=== PATIENT | male | born 2000 | race Caucasian/White ===

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

== ENCOUNTER 2018-01-20 19:53 | Emergency (ER) | payer BC ==
[2018-01-20 20:48] VITALS: BP 113/68
--- NOTE | 2018-01-20 20:53 | UC ---
Hand/Wrist HPI - HPI Summary HPI Summary: Pt presents with left wrist pain. He tells me that 2 days ago he fell on the ice and sustained a FOOSH type injury. His pain is minimal at this time, but he is concerned because he broke his right wrist in the past and had hardly any pain. He has not taken anything for his pain. Denies numbness, tingling, or decreased sensation. - History Of Current Complaint Chief Complaint: UCUpperExtremity Stated Complaint: WRIST INJURY Time Seen by Provider: 01/20/18 20:49 Hx Obtained From: Patient Mechanism Of Injury: FOOSH Onset/Duration: Sudden Onset Severity Initially: Mild Severity Currently: Mild Pain Intensity: 2 Pain Scale Used: 0-10 Numeric Character Of Pain: Dull, Stiffness Aggravating Factor(s): Movement, Lifting Alleviating Factor(s): Rest - Allergies/Home Medications Allergies/Adverse Reactions: Allergies Allergy/AdvReac Type Severity Reaction Status Date / Time amoxicillin Allergy Intermediate Rash Verified 01/20/18 20:48 Home Medications: Home Medications NK [No Home Medications Reported] 01/20/18 [History Confirmed 01/20/18] PMH/Surg Hx/FS Hx/Imm Hx Previously Healthy: Yes - Surgical History Surgical History: None - Family History Known Family History: Positive: None - Social History Occupation: Employed Full-time Lives: With Family Alcohol Use: Weekly Substance Use Type: Marijuana Substance Use Comment - Amount & Last Used: weekly, on weekends Smoking Status (MU): Never Smoked Tobacco - Immunization History Vaccination Up to Date: Yes Review of Systems Constitutional: Negative Skin: Negative Respiratory: Negative Cardiovascular: Negative Neurovascular: Negative Musculoskeletal: Other: - Pain left wrist Neurological: Negative Psychological: Negative All Other Systems Reviewed And Are Negative: Yes Physical Exam Triage Information Reviewed: Yes Appearance: Well-Appearing, No Pain Distress, Well-Nourished Vital Signs: Initial Vital Signs Temp 98.3 F 01/20/18 20:43 Pulse 55 01/20/18 20:43 Resp 16 01/20/18 20:43 BP 113/68 01/20/18 20:43 Pulse Ox 100 01/20/18 20:43 Vital Signs Reviewed: Yes Neck: Positive: Supple, Nontender, No Lymphadenopathy Respiratory: Positive: Lungs clear, Normal breath sounds, No respiratory distress Cardiovascular: Positive: RRR, No Murmur, Pulses Normal - Left radial and ulnar Musculoskeletal: Positive: Strength Intact - Left wrist and hand, ROM Intact - Left wrist and hand, No Edema - Left wrist and hand, Other: - Left dorsal wrist mild pain with hyperflexion. NTTP at rest. No snuffbox tenderness, obvious bony deformities, ecchymosis, or abrasions. Neurological: Positive: Alert, Other: - Sensations intact left hand and all fingers Psychological: Positive: Age Appropriate Behavior Skin: Negative: breakdown, significant lesion(s) Hand/Wrist Course/Dx - Course Course Of Treatment: Wrist XR: IMPRESSION: NO ACUTE FRACTURE. Suspect left wrist sprain. His wrist was wrapped in an TAVARES wrap and advised RICE therapy with ibuprofen prn - Differential Dx/Diagnosis Provider Diagnoses: Left wrist sprain Discharge - Discharge Plan Condition: Stable Disposition: HOME Patient Education Materials: Wrist Sprain (ED) Referrals: Deniz Kelley MD [Primary Care Provider] - Additional Instructions: If you develop a fever, shortness of breath, chest pain, new or worsening symptoms - please call your PCP or go to the ED. 1) Rest, Ice, and and elevate your wrist as much as possible over the next 24- 48 hours 2) May wear the wrist TAVARES wrap as needed for comfort/stability 3) May take ibuprofen 600mg every 6-8 hours as needed for pain
--- NOTE | 2018-01-20 21:11 | RAD ---
INDICATION: Pain. Fall. COMPARISON: None TECHNIQUE: AP, lateral, and oblique views were obtained. FINDINGS: The bony structures, joint spaces, and soft tissues are normal for age. IMPRESSION: NO ACUTE FRACTURE.
== END 2018-01-20 21:25 | disposition home or self-care (01) ==
LOC: UCEAST 19:53
DX: S63.502A Unspecified sprain of left wrist, initial encounter (principal); W00.0XXA Fall on same level due to ice and snow, initial encounter; Y93.9 Activity, unspecified; Y92.9 Unspecified place or not applicable
CPT/HCPCS: 99212; G0463

== ENCOUNTER 2018-04-06 12:35 | Emergency (ER) | payer BC ==
[2018-04-06 14:35] VITALS: BP 103/59
--- NOTE | 2018-04-06 14:41 | UC ---
Respiratory Complaint HPI - HPI Summary HPI Summary: 17 y/o male adolescent present to the urgent care c/o productive cough w/ green sputum, nasal congestion and green nasal discharge for the past week. Pt reports symptoms started w/ mild sore throat and fever for 2 days which have resolved. However he fell cough is worsening and he has been unable to sleep for the past 2 days. He feels there is liquid in his lungs now. He has taking Vitamin C and Emergency OTC. 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 Pt denies SOB, chest pain, abdominal pain, N/V/D. Pt is UTD w/ all vaccines for his age. - History of Current Complaint Chief Complaint: UCRespiratory Stated Complaint: COUGH,CONGESTED Time Seen by Provider: 04/06/18 14:39 Hx Obtained From: Patient Onset/Duration: Gradual Onset, Lasting Weeks - 1 week, Still Present, Worse Since - 2 days Timing: Intermittent Episodes Severity Initially: Mild Severity Currently: Moderate Pain Intensity: 2 - sore throat Pain Scale Used: 0-10 Numeric Character: Cough: Productive, Sputum Description: - green Aggravating Factors: Recumbent Position Alleviating Factors: OTC Meds Associated Signs And Symptoms: Positive: Fever, Chills, URI, Nasal Congestion, Sinus Discomfort. Negative: Dyspnea - Risk Factors Pulmonary Embolism Risk Factors: Negative Cardiac Risk Factors: Negative Pseudomonas Risk Factors: Negative Tuberculosis Risk Factors: Negative - Allergies/Home Medications Allergies/Adverse Reactions: Allergies Allergy/AdvReac Type Severity Reaction Status Date / Time amoxicillin Allergy Intermediate Rash Verified 04/06/18 14:35 PMH/Surg Hx/FS Hx/Imm Hx Previously Healthy: Yes Other Cardiovascular History: Asim anomaly - Surgical History Surgical History: None - Family History Known Family History: Positive: Cardiac Disease - Social History Occupation: Employed Full-time Lives: With Family Alcohol Use: Weekly Substance Use Type: Marijuana Substance Use Comment - Amount & Last Used: weekly, on weekends Smoking Status (MU): Never Smoked Tobacco - Immunization History Vaccination Up to Date: Yes Review of Systems Constitutional: Fever, Chills, Fatigue Skin: Negative Eyes: Negative ENT: Negative, Sore Throat, Nasal Discharge, Sinus Congestion Respiratory: Cough - productive w/ green phlegm Cardiovascular: Negative Gastrointestinal: Negative Genitourinary: Negative Motor: Negative Neurovascular: Negative Musculoskeletal: Negative Neurological: Negative Psychological: Negative Is Patient Immunocompromised?: No All Other Systems Reviewed And Are Negative: Yes Physical Exam - Summary Physical Exam Summary: Vital Signs Reviewed: Yes General: well developed, well nourished male adolescent sitting in the examining table w/o any apparent distress Eyes: Positive: Conjunctiva Clear - PERRLA, EOMI, fundi grossly normal ENT: Positive: Normal ENT inspection, Hearing grossly normal, Pharynx normal, Nasal congestion - edematous and erythematous nasal mucosa, Nasal drainage - yellowish drainage, TMs normal. Negative: Tonsillar swelling, Tonsillar exudate Neck: Positive: Supple, Nontender, No Lymphadenopathy Respiratory: no orthopnea or dyspnea. Able to speak in full sentences, no retractions or accessory muscle use, no tripod position, stridor, or head bobbing. Positive breath sound, B/L lungs w/ scattered rhonchi , no crackles or wheezing or rales Cardiovascular: Positive: RRR, No Murmur, Pulses Normal, Brisk Capillary Refill Abdomen Description: Positive: Nontender, No Organomegaly, Soft. Negative: CVA Tenderness (R), CVA Tenderness (L) Bowel Sounds: Positive: Present Musculoskeletal Exam: Normal Musculoskeletal: Positive: Strength Intact, ROM Intact, No Edema Neurological Exam: Normal Psychological Exam: Normal Skin Exam: Normal Triage Information Reviewed: Yes Vital Signs: Initial Vital Signs Temp 98.4 F 04/06/18 14:33 Pulse 61 04/06/18 14:33 Resp 18 04/06/18 14:33 BP 103/59 04/06/18 14:33 Pulse Ox 97 04/06/18 14:33 Diagnostic Evaluation - Laboratory O2 Sat by Pulse Oximetry: 97 Respiratory Course/Dx - Course Course Of Treatment: 17 y/o male adolescent present to the urgent care c/o productive cough w/ green sputum, nasal congestion and green nasal discharge for the past week. Pt reports symptoms started w/ mild sore throat and fever for 2 days which have resolved. However he fell cough is worsening and he has been unable to sleep for the past 2 days. He feels there is liquid in his lungs now. He has taking Vitamin C and Emergency OTC. 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 Pt denies SOB, chest pain, abdominal pain, N/V/D. Pt is UTD w/ all vaccines for his age. Hx obtained. Pt w/ B/L lungs w/ scattered rhonchi , no crackles or wheezing or rales on examination. Chest X-ray ordered, Impression: No cardio pulmonary disease observed as per radiologist. Pt given an albuterol nebulizer treatment at the clinic. O2Sat: 97%. Pt tolerated well treatment and felt better. Pt with Acute bronchitis on examination. Pt Rx Z-valentino PO and Albuterol inhaler and Tessalon tabs to alleviate bronchospasm and cough. Pt advised to increase fluid intake and eat well and if not improvement or worsening of symptoms to return to the urgent care or f/u with PCP for further management. Mother and Pt understood and agreed with plan of care - Differential Dx/Diagnosis Differential Diagnosis/HQI/PQRI: Bronchitis, Influenza, Lower Resp Infection, Sinusitis, Other - pneumonia Provider Diagnoses: 1- Acute bronchitis. 2-cough Discharge - Sign-Out/Discharge Documenting (check all that apply): Discharge/Admit/Transfer - D/C home - Discharge Plan Condition: Stable Disposition: HOME Prescriptions: Albuterol HFA INHALER* [Ventolin HFA Inhaler*] 1 - 2 puff INH Q6H PRN #1 mdi PRN Reason: bronchospasm Azithromyxin VALENTINO (NF) [Z-Valentino (Zithromax) 250 mg tabs #6] 2 tab PO .TODAY, THEN 1 DAILY #6 tab Benzonatate CAP* [Tessalon 100 MG CAP*] 100 mg PO TID #21 cap Patient Education Materials: Acute Bronchitis (ED) Forms: *Work Release Referrals: Deniz Kelley MD [Primary Care Provider] - 3 Days Additional Instructions: 1-Please take full course of antibiotic to avoid resistance. 2-Take Tessalon PO tabs as directed and use the albuterol inhaler to alleviate cough. Increase fluid intake, rest and eat well. 3- If symptoms do not improve or worsen or your develop SOB with fever and severe wheezing please go immediately to the ER further evaluation and treatment. 4- F/u with your PCP in3 days if your symptoms are not improving for further management. - Billing Disposition and Condition Condition: STABLE Disposition: HOME
[2018-04-06] MEDS ORDERED: Albuterol 2.5 MG/3 ML NEB.SOL* (0.083%) INH ONE (14:54)
--- NOTE | 2018-04-06 15:13 | RAD ---
INDICATION: Productive cough and fever. COMPARISON: Comparison is made with a prior chest x-ray study from January 07, 2008. TECHNIQUE: Dual-energy PA and lateral views of the chest were obtained. FINDINGS: The heart is within normal limits in size. Mediastinal and hilar contours appear within normal limits. The lungs are clear. No pleural effusion is present. There is a mild dorsal lumbar scoliosis convex toward the right in the dorsal region and toward the left at the dorsal lumbar junction. IMPRESSION: NO EVIDENCE FOR ACTIVE CARDIOPULMONARY DISEASE.
== END 2018-04-06 15:59 | disposition home or self-care (01) ==
LOC: UCEAST 12:35
DX: J20.9 Acute bronchitis, unspecified (principal); Z88.0 Allergy status to penicillin
CPT/HCPCS: 71046; 99214; G0463

== ENCOUNTER 2018-11-02 13:55 | Emergency (ER) | payer BC ==
[2018-11-02 14:14] VITALS: BP 155/76
--- NOTE | 2018-11-02 15:17 | UC ---
Abdominal Pain Male HPI - HPI Summary HPI Summary: 18-year-old male with a history of Asim anomaly presents with 2 week history of painful bulge/mass in the left groin area. He states that this increased in size today and became more sore after lifting something. He denies any fever, vomiting, redness, difficulty with urination or bowel movements. - History of Current Complaint Chief Complaint: UCAbdominalPain Stated Complaint: ABD PAIN Time Seen by Provider: 11/02/18 14:35 Hx Obtained From: Patient Pain Intensity: 4 Pain Scale Used: 0-10 Numeric - Allergies/Home Medications Allergies/Adverse Reactions: Allergies Allergy/AdvReac Type Severity Reaction Status Date / Time amoxicillin Allergy Intermediate Rash Verified 11/02/18 14:14 Home Medications: Home Medications NK [No Home Medications Reported] 11/02/18 [History Confirmed 11/02/18] PMH/Surg Hx/FS Hx/Imm Hx - Additional Past Medical History Additional PMH: History of Asim anomaly - Surgical History Surgical History: Yes - Family History Known Family History: Positive: None, Cardiac Disease - Social History Alcohol Use: Weekly Substance Use Type: Marijuana Substance Use Comment - Amount & Last Used: daily Smoking Status (MU): Never Smoked Tobacco - Immunization History Vaccination Up to Date: Yes Review of Systems All Other Systems Reviewed And Are Negative: Yes Constitutional: Positive: Negative Skin: Negative: Rash Gastrointestinal: Positive: Abdominal Pain, Other - Hernia mass. Negative: Vomiting, Diarrhea, Nausea Genitourinary: Negative: Dysuria, Hematuria, Frequency, Urgency Motor: Positive: Negative Musculoskeletal: Positive: Negative Physical Exam Triage Information Reviewed: Yes Appearance: Well-Appearing, No Pain Distress, Well-Nourished, Other: - Smells of marijuana smoke Vital Signs: Initial Vital Signs Temp 99.5 F 11/02/18 14:07 Pulse 66 11/02/18 14:07 Resp 18 11/02/18 14:07 BP 155/76 11/02/18 14:07 Pulse Ox 100 11/02/18 14:07 Vital Signs Reviewed: Yes Eyes: Positive: Conjunctiva Inflamed ENT: Positive: Normal ENT inspection Neck: Positive: Nontender Respiratory: Positive: Lungs clear Cardiovascular: Positive: RRR Abdomen Description: Positive: Nontender, Soft Bowel Sounds: Positive: Present Male Genital Exam: Positive: Normal Genitalia, Hernia Mass - On the left, easily reducible with defect approximately 2-2.5 cm. Musculoskeletal Exam: Normal Neurological Exam: Normal Skin Exam: Normal Abd Pain Male Course/Dx - Course Course Of Treatment: Patient with easily reducible left inguinal hernia. Large defect. Patient thought how to reduce hernia. He is referred to surgery on a nonurgent basis. - Differential Dx/Clinical Impression Provider Diagnosis: Left inguinal hernia Discharge - Sign-Out/Discharge Documenting (check all that apply): Patient Departure All imaging exams completed and their final reports reviewed: No Studies - Discharge Plan Condition: Improved Disposition: HOME Patient Education Materials: Inguinal Hernia (ED) Referrals: Felix Cooper MD [Medical Doctor] - Deniz Kelley MD [Primary Care Provider] - Additional Instructions: Call surgeon for appointment tomorrow. Return if hernia sac gets stuck out, pain is intense, vomiting, worse or other concerns. Put pressure against it when bearing down for bowel movement or lifting things. - Billing Disposition and Condition Condition: IMPROVED Disposition: Home - Attestation Statements Document Initiated by Scribe: No
== END 2018-11-02 14:56 | disposition home or self-care (01) ==
LOC: UCEAST 13:55
DX: K40.90 Unilateral inguinal hernia, without obstruction or gangrene, not specified as recurrent (principal); Z88.0 Allergy status to penicillin
CPT/HCPCS: 99211; G0463